=== PATIENT | female | born 1990 | race Caucasian/White ===

== ENCOUNTER 2016-11-22 15:15 | Emergency (ER) | payer OTHER | END 2016-11-22 18:10 | disposition home or self-care (01) | LOC: ER 15:15 | DX: S80.02XA Contusion of left knee, initial encounter (principal); R42 Dizziness and giddiness; M62.838 Other muscle spasm; F17.210 Nicotine dependence, cigarettes, uncomplicated; V49.40XA Driver injured in collision with unspecified motor vehicles in traffic accident, initial encounter | CPT/HCPCS: 36415; Q9967 ==